=== PATIENT | female | born 1985 | race African-American/Black ===

== ENCOUNTER 2018-06-18 13:17 | Emergency (ER) | payer MEDICAID ==
[~2018-06-18] VITALS: Ht 154.9 cm; Wt 56.2 kg
--- NOTE | 2018-06-18 13:24 | NUR ---
VICKY ARGUETA AT BEDSIDE FOR MSE.
--- NOTE | 2018-06-18 14:10 | NUR ---
Patient discharged to home in stable conditon. Written and verbal after care instructions given to patient. Patient verbalizes understanding of instructions.
== END 2018-06-18 14:11 | disposition home or self-care (01) ==
LOC: ER 13:17
DX: L72.3 Sebaceous cyst (principal); J45.909 Unspecified asthma, uncomplicated
CPT/HCPCS: 87070; 87077; A4663

== ENCOUNTER 2018-06-21 15:29 | Emergency (ER) | payer MEDICAID ==
[~2018-06-21] VITALS: Ht 157.5 cm; Wt 54.4 kg
[2018-06-21 16:08] VITALS: BP 115/67
--- NOTE | 2018-06-21 16:09 | NUR ---
Patient discharged to home in stable conditon. Written and verbal after care instructions given. Patient verbalizes understanding of instructions.
== END 2018-06-21 16:09 | disposition home or self-care (01) ==
LOC: ER 15:31
DX: L02.01 Cutaneous abscess of face (principal); J45.909 Unspecified asthma, uncomplicated
CPT/HCPCS: A4663